=== PATIENT | female | born 1995 | race Caucasian/White ===

== ENCOUNTER 2021-02-07 19:10 | Emergency (ER) | payer SELFPAY ==
[~2021-02-07] VITALS: Ht 152.4 cm; Wt 45.0 kg
[2021-02-07 19:13] VITALS: BP 135/77
== END 2021-02-07 19:44 | disposition left against medical advice (07) ==
LOC: EDBD 19:10 → ER 19:10
DX: R41.82 Altered mental status, unspecified (principal)
CPT/HCPCS: 99283